=== PATIENT | male | born 1990 | race Two or more races ===

== ENCOUNTER 2021-04-20 15:40 | Inpatient (IN) | payer MEDICAID ==
[~2021-04-20] VITALS: Ht 165.1 cm; Wt 78.0 kg
[~2021-04-20 15:40] MED LIST: NAPR-1025 PO; SERT-158 PO
[2021-04-20 17:43] VITALS: BP 149/94
[2021-04-20] MEDS ORDERED: ZOLPIDEM TARTRATE 10 MG TABLET PO PRN (17:45)
[2021-04-20] MEDS ORDERED: LORazepam 2 MG TABLET PO PRN (17:45)
[2021-04-20] MEDS ORDERED: HALOPERIDOL 5 MG TABLET PO PRN (17:45)
[2021-04-20] MEDS ORDERED: CloNIDine HCL 0.1 MG TABLET PO PRN (20:00)
[2021-04-20] MEDS ORDERED: MAGNESIUM HYDROXIDE SUSPENSION 30 ML UDCUP PO PRN (20:00)
[2021-04-20] MEDS ORDERED: MAG HYDROX/AL HYDROX/SIMETH ES 30 ML SUSPENSION UDCUP PO PRN (20:00)
[2021-04-20] MEDS ORDERED: ALBUTEROL SULFATE HFA 90 MCG/PUFF 8 GM INHALER IH PRN (20:00)
[2021-04-20] MEDS ORDERED: LOPERAMIDE HCL 2 MG CAPSULE PO PRN (20:00)
[2021-04-20] MEDS ORDERED: ONDANSETRON HCL 4 MG TABLET PO PRN (20:00)
[2021-04-20] MEDS ORDERED: OMEPRAZOLE 20 MG CAPSULE PO PRN (20:00)
[2021-04-20] MEDS ORDERED: BACITRACIN 28 GM OINTMENT TP PRN (20:00)
[2021-04-20] MEDS ORDERED: DOCUSATE SODIUM 100 MG CAPSULE PO PRN (20:00)
[2021-04-20] MEDS ORDERED: ACETAMINOPHEN 325 MG TABLET PO PRN (20:00)
[2021-04-20] MEDS ORDERED: PETROLATUM,WHITE 28 GM JELLY TP PRN (20:00)
[2021-04-20] MEDS ORDERED: IBUPROFEN 600 MG TABLET PO PRN (20:00)
[2021-04-20] MEDS ORDERED: BENZOCAINE/MENTHOL LOZENGE PO PRN (20:00)
[2021-04-21 09:05] VITALS: BP 151/95
[2021-04-21 16:06] VITALS: BP 151/76
[2021-04-22 08:57] VITALS: BP 152/97
[2021-04-22 16:48] VITALS: BP 151/91
[2021-04-22] MEDS: SERTRALINE HCL 50 MG TABLET PO SCH (17:21)
[2021-04-23] MEDS: SERTRALINE HCL 50 MG TABLET PO SCH (08:46)
[2021-04-23 09:00] VITALS: BP 137/87
[2021-04-23 16:00] VITALS: BP 126/78
[2021-04-24 08:35] VITALS: BP 142/91
[2021-04-24] MEDS: SERTRALINE HCL 50 MG TABLET PO SCH (08:40)
[2021-04-24] MEDS ORDERED: SERT-158 PO (14:09)
== END 2021-04-24 15:20 | disposition home or self-care (01) | DRG 754 ==
LOC: 3EI 15:40
PROVIDERS: ADMIT Psychiatry & Neurology Psychiatry; ATTEND Psychiatry & Neurology Psychiatry
DX: F32.9 Major depressive disorder, single episode, unspecified (principal); F41.9 Anxiety disorder, unspecified; G47.00 Insomnia, unspecified; K59.00 Constipation, unspecified; T50.901A Poisoning by unspecified drugs, medicaments and biological substances, accidental (unintentional), initial encounter; Y92.89 Other specified places as the place of occurrence of the external cause
CPT/HCPCS: Z7610